=== PATIENT | male | born 1995 | race Two or more races ===

== ENCOUNTER 2023-03-07 21:10 | Emergency (ER) | payer OTHER ==
[2023-03-07] MEDS ORDERED: SODIUM CHLORIDE 0.9% 1,000 ML IV STA (21:33)
[2023-03-07] MEDS ORDERED: ONDANSETRON 4 MG/2 ML VIAL IVP STA (21:33)
[2023-03-07] MEDS ORDERED: KETOROLAC 30 MG/ML VIAL IVP STA (21:33)
[2023-03-07 21:44] LABS: BASOPHILS % (AUTO) 0.3 %; EOSINOPHILS # (AUTO) 0.2 10^3/uL (0.0-0.7); EOSINOPHILS % (AUTO) 1.2 %; HCT - HEMATOCRIT 51.5 % (42.0-52.0); HGB - HEMOGLOBIN 17.4 g/dL (14.0-18.0); LYMPHOCYTES # (AUTO) 0.8 10^3/uL (1.5-3.5); LYMPHOCYTES % (AUTO) 5.4 %; MEAN CORPUSCULAR HEMOGLOBIN 29.7 pg (27.0-31.0); MEAN CORPUSCULAR HGB CONC 33.8 g/dL (32.0-36.0); MEAN CORPUSCULAR VOLUME 87.9 fL (80.0-94.0); MONOCYTES # (AUTO) 0.9 10^3/uL (0.0-1.0); NEUTROPHILS # (AUTO) 12.6 10^3/uL (1.5-6.6); NEUTROPHILS % (AUTO) 86.8 %; PLT - PLATELET COUNT 242 10^3/uL (130-450); RED BLOOD COUNT 5.86 10^6/uL (4.70-6.10); RED CELL DISTRIBUTION WIDTH 12.5 % (12.0-15.0); WHITE BLOOD COUNT 14.5 x10^3/uL (4.8-10.8)
--- NOTE | 2023-03-07 21:44 | ED Physician Documentation ---
PD HPI NVD - Stated complaint Stated Complaint: VOMIT - Chief complaint Chief Complaint: Abd Pain - History obtained from History obtained from: Patient - Additonal information Additional information: Patient is a 27-year-old male with no significant prior medical history presenting for evaluation of vomiting and diarrhea starting this morning. Patient states he has had numerous episodes of loose watery stools and 3 episodes of emesis initially consisting of food and then more liquids. He denies blood in emesis or stools. He feels body aches and chills. Denies known fever. Denies any known sick contacts. He reports eating steak last night but others also ate this and are not sick. He denies any recent antibiotic use or travel. He denies any prior abdominal surgeries. He has not been able to tolerate any p.o. intake today. Review of Systems Constitutional: denies: Fever Cardiac: denies: Chest pain / pressure Respiratory: denies: Dyspnea GI: reports: Vomiting, Diarrhea. denies: Abdominal Pain, Bloody / black stool : denies: Dysuria Musculoskeletal: denies: Back pain PD PAST MEDICAL HISTORY - Allergies Allergies/Adverse Reactions: Allergies Allergy/AdvReac Type Severity Reaction Status Date / Time No Known Drug Allergies Allergy Verified 03/07/23 21:15 PD ED PE NORMAL - General General: Alert and oriented X 3, No acute distress, Well developed/nourished - HEENT HEENT: Atraumatic - Neck Neck: Supple, no meningeal sign - Cardiac Cardiac: RRR, No murmur - Respiratory Respiratory: No respiratory distress, Clear bilaterally - Abdomen Abdomen: Normal bowel sounds, Soft, Non tender, Non distended - Derm Derm: Warm and dry - Neuro Neuro: Normal speech Results - Vitals Vitals: Vital Signs - 24 hr 03/07/23 03/07/23 21:15 22:05 Temperature 37.0 C Heart Rate 96 97 Respiratory 18 16 Rate Blood Pressure 130/80 138/76 H O2 Saturation 100 98 Oxygen O2 Source Room air - Labs Labs: Laboratory Tests 03/07/23 03/07/23 21:39 21:39 WBC 14.5 H RBC 5.86 Hgb 17.4 Hct 51.5 MCV 87.9 MCH 29.7 MCHC 33.8 RDW 12.5 Plt Count 242 MPV 12.0 H Neut # (Auto) 12.6 H Lymph # (Auto) 0.8 L [place] # (Auto) 0.9 Eos # (Auto) 0.2 Baso # (Auto) 0.0 Absolute Nucleated RBC 0.00 Nucleated RBC % 0.0 Sodium 140 Potassium 3.9 Chloride 106 Carbon Dioxide 24 Anion Gap 10.0 BUN 16 Creatinine 1.0 Estimated GFR (MDRD) 91 Glucose 114 H Calcium 9.8 Total Bilirubin 1.0 AST 22 ALT 27 Alkaline Phosphatase 139 H Total Protein 8.6 H Albumin 5.1 Globulin 3.5 Albumin/Globulin Ratio 1.5 Lipase 30 PD Medical Decision Making - ED course Complexity details: reviewed results, re-evaluated patient, d/w patient ED course: Patient is a 27-year-old presenting for evaluation of vomiting and diarrhea through the day. His vital signs are stable. His abdominal exam is benign. CBC and chemistries were reviewed. Mild leukocytosis but otherwise no significant findings. Repeat abdominal exam remains benign. He is feeling better with IV fluids, IV Zofran and Toradol. His symptoms are likely related to a viral process. He has no risk factors for C. difficile. Patient is counseled on continued supportive care as well as concerning symptoms to return for. Departure - Departure Disposition: 01 Home, Self Care Clinical Impression: Nausea vomiting and diarrhea Condition: Stable Instructions: ED Diet Vomiting Diarrhea Comments: Your symptoms are likely related to a viral infection or something you ate. I would expect them to get better quickly over the next 24 hours.I have sent a prescription for antinausea medication to the [facility] in [place].I would start with liquids and bland food and advance your diet as tolerated. If you develop any worsening symptoms such as continued vomiting despite the medicine, blood in your stools or abdominal pain then please return to the emergency department. Forms: Activity restrictions Discharge Date/Time: 03/07/23 23:07
[2023-03-07 21:56] LABS: ALBUMIN 5.1 g/dL (3.2-5.5); ALBUMIN/GLOBULIN RATIO 1.5 (1.0-2.2); CALCIUM 9.8 mg/dL (8.5-10.3); POTASSIUM 3.9 mmol/L (3.5-5.0); TOTAL PROTEIN 8.6 g/dL (6.7-8.2)
[2023-03-07 22:06] VITALS: BP 138/76
[2023-03-07] MEDS ORDERED: LOPERAMIDE 2 MG CAPSULE PO STA (22:41)
[2023-03-07] MEDS ORDERED: ONDANSETRON ODT 4 MG Prepack 2 TL PRN (22:41)
== END 2023-03-07 23:07 | disposition home or self-care (01) ==
LOC: ED 21:10
DX: R11.2 Nausea with vomiting, unspecified (principal); R19.7 Diarrhea, unspecified
CPT/HCPCS: 36415; 80053; 83690; 85025; 96374; 99283; A9270

== ENCOUNTER 2024-06-09 11:45 | Outpatient (CLI) | payer OTHER ==
[2024-06-09 20:50] LABS: CHLAMYDIA TRACHOMATIS DNA NEGATIVE (NEGATIVE); NEISSERIA GONORRHOEAE DNA NEGATIVE (NEGATIVE); TRICHOMONAS VAGINALIS DNA NEGATIVE (NEGATIVE)
== END 2024-06-09 12:00 | disposition home or self-care (01) ==
LOC: LAB.N 11:45
PROVIDERS: ATTEND Family Medicine
DX: Z11.3 Encounter for screening for infections with a predominantly sexual mode of transmission (principal)
CPT/HCPCS: 87491; 87591; 87661